=== PATIENT | male | born 1970 | race Caucasian/White ===

== ENCOUNTER 2016-10-07 16:14 | Emergency (ER) | payer MEDICARE, MEDICAID, OTHER ==
[~2016-10-07] VITALS: Ht 165.1 cm; Wt 65.9 kg
[~2016-10-07 16:14] MED LIST: IMI25 PO; RISP1TAB90 PO
[2016-10-07 16:16] VITALS: BP 138/84; PULSE 73; RESP 20; O2SAT 98
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
[2016-10-07] MEDS ORDERED: Ketorolac 30 mg/mL 2 mL Inj IM ONE (18:35)
[2016-10-07 18:52] VITALS: BP 138/84; PULSE 73; RESP 20; O2SAT 98
== END 2016-10-07 18:54 ==
LOC: SED 16:14
DX: S00.93XA Contusion of unspecified part of head, initial encounter (principal); Y04.0XXA Assault by unarmed brawl or fight, initial encounter; Y93.89 Activity, other specified; Y92.149 Unspecified place in prison as the place of occurrence of the external cause; Y99.8 Other external cause status; I10 Essential (primary) hypertension; F17.200 Nicotine dependence, unspecified, uncomplicated
CPT/HCPCS: 70450; 96372; 99284; J1885